=== PATIENT | male | born 1975 | race Caucasian/White ===

== ENCOUNTER 2017-01-16 03:48 | Emergency (ER) | payer OTHER ==
[~2017-01-16] VITALS: Ht 180.3 cm; Wt 117.9 kg
[~2017-01-16 03:48] MED LIST: BACTRIM DS 8001 TAB PO; CLINDAMYCIN HY300 MG PO; KEFLEX500 MG PO; MOTRIN 800MG T800 MG PO; NAPROSYN 500 M500 MG PO; NAPROSYN500 M1 PO; SUBOXONE 8 MG-21 TAB SL; ULTRAM50 M1 PO
[2017-01-16 04:04] VITALS: BP 136/90
--- NOTE | 2017-01-16 04:18 | ED GENERAL ADULT ---
History of Present Illness General Chief Complaint: General Adult Stated Complaint: "THINK I MIGHT HAVE ANXIETY" PER PT Source: patient Exam Limitations: no limitations Vital Signs & Intake/Output Vital Signs & Intake/Output Vital Signs Date Time Temp Pulse Resp B/P B/P Pulse O2 O2 Flow FiO2 Mean Ox Delivery Rate 01/16 0404 96.8 92 16 136/90 98 Room Air Allergies Coded Allergies: codeine (Intermediate, RASH 02/23/16) Reconcile Medications Buprenorphine Hydrochloride/ (Suboxone 8 MG-2 MG) 1 TAB TAB 1 TAB SL TID ADDICTION (Reported) Lorazepam (Ativan) 1 MG TABLET 1 TAB PO BID ANXIETY SIX...[id number] Naproxen (Naprosyn) 500 MG TABLET 1 TAB PO BID PRN KNEE PAIN Sulfamethoxazole/Trimethopri (Bactrim Ds 800 MG-160 MG) 1 TAB TAB 1 TAB PO BID ABSCESS Tramadol HCl (Ultram) 50 MG TABLET 1-2 TAB PO Q6P PRN PAIN Yibuprofen (Motrin 800MG Tab) 800 MG TAB 1 TAB PO Q6P PRN pain Triage Note: 41yo MALETO TRIAGE W/CO FEELING VERY STRESSED OUT, UNABLE TO SLEEP, INTERMITTENT CHEST PAIN AND UNABLE TO RELAX. Triage Nurses Notes Reviewed? yes Onset: Gradual Duration: week(s):, waxing and waning Timing: recent history Injury Environment: home Severity: mild, moderate Modifying Factors: Improves With: rest. Associated Symptoms: anxiety HPI: 41-year-old gentleman presents with the sensation of anxiety. 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 He was laid off approximately 3 weeks ago. Since that time he has often had pain like attacks in the middle the night. "I feel all anxious... I feel really bad." Usually the symptoms self resolved. However, he states that in the past he was prescribed Xanax and Zoloft which helped his symptoms. He denies drugs, suicidality, homicidality, hallucinations. He is otherwise well. Past History Travel History Traveled to [place] past 21 day No Medical History Any Pertinent Medical History? see below for history Neurological: NONE EENT: FLU Cardiovascular: NONE Respiratory: NONE Gastrointestinal: NONE Hepatic: NONE Renal: NONE Musculoskeletal: NONE Psychiatric: opioid dependence Endocrine: NONE Blood Disorders: NONE Cancer(s): NONE S IRON WORKER/Reproductive: NONE Tetanus Vaccine: 07/12/15 Surgical History Surgical History: "FLUID DRAINED FROM LT LUNG" Psychosocial History What is your primary language Ukrainian Tobacco Use: Refused to answer Illicit Drug Use: denies illicit drug use Family History Hx Contributory? No Review of Systems Review of Systems Constitutional: Reports: no symptoms. EENTM: Reports: no symptoms. Respiratory: Reports: no symptoms. Cardiovascular: Reports: no symptoms. GI: Reports: no symptoms. Genitourinary: Reports: no symptoms. Musculoskeletal: Reports: no symptoms. Skin: Reports: no symptoms. Neurological/Psychological: Reports: no symptoms. Hematologic/Endocrine: Reports: no symptoms. Immunologic/Allergic: Reports: no symptoms. All Other Systems: Reviewed and Negative Physical Exam Physical Exam General Appearance: well developed/nourished, mild distress Head: atraumatic, normal appearance Eyes: Bilateral: normal appearance. Ears, Nose, Throat: normal pharynx, normal ENT inspection Neck: normal inspection, supple, full range of motion Respiratory: normal breath sounds, chest non-tender, no respiratory distress, quiet respiration, lungs clear Cardiovascular: regular rate/rhythm Gastrointestinal: normal bowel sounds, soft, non-tender, no organomegaly Back: normal inspection, normal range of motion Extremities: normal inspection, normal capillary refill, normal range of motion, no edema Neurologic/Psych: no motor/sensory deficits, awake, alert, oriented x 3 Skin: intact, normal color, warm/dry Core Measures ACS in differential dx? No CVA/TIA Diagnosis: No Severe Sepsis Present: No Septic Shock Present: No Progress Differential Diagnoses I considered the following diagnoses in my evaluation of the patient: Anxiety versus panic disorder versus depression versus other Plan of Care: discussed at length... gave small rx of ativan. implored upon patient to follow up with his pmd and consider care. discussed meditation and mindfulness strategies. Initial ED EKG: none Departure Departure Disposition: HOME OR SELF CARE Condition: Stable Clinical Impression Primary Impression: Anxiety Referrals: PATIENT HAS NO PRIMARY CARE DR (PCP/Family) Departure Forms: Customer Survey General Discharge Information Prescriptions: Current Visit Scripts Lorazepam (Ativan) 1 TAB PO BID #6 TAB Ref 1 SIX...[id number] Critical Care Note Critical Care Note Critical Care Time: non-applicable
[2017-01-16] MEDS ORDERED: ATIVAN1 M1 PO (04:47)
== END 2017-01-16 04:53 ==
LOC: ERH 03:48
DX: F41.9 Anxiety disorder, unspecified (principal)